=== PATIENT | male | born 1955 | race Caucasian/White ===

== ENCOUNTER 2017-12-18 13:06 | Observation (INO) | payer BC ==
[~2017-12-18] VITALS: Ht 180.3 cm; Wt 91.6 kg
[~2017-12-18 13:06] MED LIST: ANASPAZ0.125 MG SL; ANUSOL-HC25 MG RECTAL; ASPIR 8181 MG PO; B12INJ PO; CARAFATE 1 GM TA1 G1 PO; CLARITIN10 MG PO; CLONIDINE0.1 PO; COLACE100 MG PO; DILAUDID 2 MG TA2 MG PO; DOXYCYCLINE 10100 MG PO; EFFIENT10 MG PO; ENTOCORT EC 3 MG3 MG PO; FENTANYL 0.50 MCG/ML IVPUSH; FLAGYL500 MG PO; FLONASE 0.05%50 MCG NASAL; HYDROCODON-ACE1 EAC7 PO; HYDROCODONE-APA1 TA1 PO; KLOR-CON SPRIN10 MEQ PO; LIPITOR 20 MG T20 M1 PO; METOPROLOL TARTATE PO; MIRALAX17 GM PO; NEURONTIN300 MG PO; NORCO 5-325 TA1 EACH PO; OMEPRAZOLE40 MG PO; PANTOPRAZOLE SO40 M1 PO; PENTASA500 MG PO; PERCOCET PO; POTASSIUM20 PO; SIMVASTATIN40 MG PO; TOPROL XL25 MG; TOPROL XL25 MG PO; TRAMADOL 50 MG50 MG PO; VALIUM5 MG PO; VITAMIN D2000 UNIT PO; XANAX 0.25 MG0.25 MG PO; XANAX1 MG PO; ZANAFLEX4 MG PO; ZANTAC 150MG T150 MG PO; ZOFRAN ODT4 MG DISSOLVE; ZYRTEC10 MG PO
[2017-12-18 13:27] LABS: ABSOLUTE BASOPHILS 0.1 thou/uL (0.0-0.2); ABSOLUTE EOSINOPHILS 0.4 thou/uL (0.0-0.7); ABSOLUTE LYMPHOCYTES 2.3 thou/uL (0.8-5.3); ABSOLUTE MONOCYTES 0.6 thou/uL (0.0-1.2); ABSOLUTE NEUTROPHILS 5.3 thou/uL (1.6-8.1); BASOPHILS 0.9 %; EOSINOPHILS 4.2 %; HEMATOCRIT 45.9 % (42.0-52.0); HEMOGLOBIN 15.6 gm/dL (14.0-18.0); LYMPHOCYTES 26.5 %; MCH 28.4 pg (26.0-34.0); MCHC 34.1 g/dL (28.0-37.0); MCV 83.3 fL (80.0-100.0); MONOCYTES 6.5 %; MPV 7.9 fl. (7.2-11.1); NUCLEATED RBCS 0 /100WBC; PLATELET COUNT* 170 thou/uL (150-400); POLYS 61.9 %; RDW-CV 13.5 % (10.5-14.5); WBC 8.6 thou/uL (4.0-11.0)
[2017-12-18 13:31] LABS: URINE BILIRUBIN NEGATIVE (Negative); URINE BLOOD NEGATIVE (Negative); URINE CLARITY CLEAR; URINE COLOR YELLOW; URINE GLUCOSE-RANDOM NEGATIVE (Negative); URINE KETONES NEGATIVE (Negative); URINE LEUKOCYTES-REFLEX NEGATIVE (Negative); URINE NITRITE-REFLEX NEGATIVE (Negative); URINE PROTEIN NEGATIVE (Negative); URINE SPECIFIC GRAVITY 1.025 (1.005-1.030); URINE UROBILINOGEN 0.2 E.U./dl (0.2-1.0)
[2017-12-18 13:42] LABS: ALBUMIN 3.6 g/dL (3.4-5.0); CALCIUM 8.8 mg/dL (8.5-10.1); CREATININE 0.8 mg/dL (0.6-1.3); TOTAL PROTEIN 7.5 g/dL (6.4-8.2)
[2017-12-18 20:00] VITALS: BP 139/89
[2017-12-18 23:00] VITALS: BP 129/72
[2017-12-19 03:00] VITALS: BP 108/76
[2017-12-19 07:30] VITALS: BP 125/84
--- NOTE | 2017-12-19 10:37 | EKG ---
[place] [address] ELECTROCARDIOGRAM REPORT Name: DANNIELLE HALL Room: [address] M.R.#: [id number] Admission: 12/18/17 Attend Phys: Scott Quintero DO Discharge: Date of : 59 Report #: [id number] THIS REPORT FOR: //name// [facility] ED Test Date: 2017-12-18 Test Time: 17:58:52 Pat Name: DANNIELLE HALL Department: Room: [place] [address] Gender: M Maintenance Man: SANGEETA : 1955 Requested By: Tito Mccoy Order Number: [id number] Reading MD: Fritz Hilario Measurements Intervals [place] Rate: 66 P: 7 [place]: 171 QRS: -22 QRSD: 102 T: 14 QT: 402 QTc: 422 Interpretive Statements Sinus rhythm Borderline left axis deviation Compared to ECG 05/05/2017 09:05:18 No significant changes Electronically Signed On 12-19-2017 10:37:22 CDT by Fritz Hilario [email or web address] <ELECTRONICALLY SIGNED> By: Fritz Hilario MD, [facility] 12/19/17 1037 1758 175 Fritz Hilario MD, [facility] /EPI
[2017-12-19] MEDS ORDERED: HYDROCODON-ACE1 EAC7 PO (10:44)
[2017-12-19 10:46] VITALS: BP 125/84
--- NOTE | 2017-12-21 17:18 | OP ---
[address] [address] OPERATIVE REPORT Name: DANNIELLE HALL Room: [address] Ramonita Nathan#: [id number] Admission: 12/18/17 Attend Phys: Scott Qunitero DO Discharge: 12/19/17 Date of : 59 Report #: [id number] THIS REPORT FOR: //name// CC: Scott Jeter DICTATED BY: Robert John DO DATE OF SERVICE: 12/18/2017 PREOPERATIVE DIAGNOSIS: Acute appendicitis. POSTOPERATIVE DIAGNOSIS: Acute appendicitis. SURGEON: Scott Quintero DO OIL PROCESSING TECHNICIAN: Robert John DO, PGY-1. OPERATION PERFORMED: Laparoscopic appendectomy. ANESTHESIA: General. ESTIMATED BLOOD LOSS: 30 SPECIMEN REMOVED: Appendix. COMPLICATIONS: None. DISPOSITION: To PACU in a stable condition. INDICATIONS: The patient is a 62-year-old male who presented with a 3-day history of right lower quadrant abdominal pain. He was seen by his primary care physician, Dr. Vital, today and was sent for an outpatient CT scan of the abdomen, which revealed acute appendicitis. It was discussed with the patient that a laparoscopic appendectomy would be definitive treatment for his condition. Risks and complications were discussed to include bleeding, infection, injury to surrounding structures, possible open procedure, possible drain placement and possible risk of anesthesia. He agreed. He voiced his understanding of risks and complications and agreed to proceed with surgery. DESCRIPTION OF PROCEDURE: After consent was obtained, the patient was taken to the operating room and placed on the operating room table in the supine position. SCDs were applied to both lower extremities bilaterally. Two grams of Ancef were given preoperatively. General anesthesia was administered without [place] [id number] OPERATIVE REPORT Name: DANNIELLE HALL Room: [address] Ramonita Nathan#: [id number] Admission: 12/18/17 Attend Phys: Scott Quintero DO Discharge: 12/19/17 Date of : 59 Report #: [id number]. The patient was then prepped and draped in the standard sterile fashion. An 11 blade scalpel was used to make a vertical incision above the umbilicus. Electrocautery was used to dissect down to the fascia. The fascia was scored and grasped on both sides with Adriana and a hemostat was used to bluntly enter the peritoneum. Two sutures of 0 Vicryl were placed on either side of the fascia and a 10 mm Vinh trocar was advanced into the abdomen. Insufflation was initiated without any complication. Camera was inserted into the abdomen and the intra-abdominal cavity was inspected. The appendix could not be immediately visualized, so a second trocar was inserted suprapubically under direct visualization. Laparoscopic Shamir was then entered into the abdomen and used to move the small bowel cephalad and lateral. At that time, the cecum could be visualized and the appendix could be seen adhered to the anterior abdominal wall. A second trocar was then placed in the left lower quadrant under direct visualization. Harmonic scalpel was used to dissect adhesions around the inflamed appendix. After the appendix was dissected off the anterior abdominal wall, the base of the appendix could be visualized going into the cecum. The end of the cecum was then clarified by visualizing the tinea. [place] dissector was used to dissect through the mesoappendix at the base of the appendix and a 45 purple load Endo-CESAR stapler was placed over the base of the appendix and fired. The Harmonic scalpel was then used to further dissect the mesoappendix all the way towards the tip. After the appendix was removed, it was placed into an EndoCatch bag and a suction irrigation was used to irrigate the right lower quadrant and to closely inspect for hemostasis. After hemostasis was ensured, the staple line was inspected carefully and no bleeding was seen. Insufflation was let down slightly again to ensure hemostasis at the staple line. Isaiah-Benja was used to close the fascia of the right lower quadrant, 10 mm trocar site, and a 4-0 Monocryl was used to close all incision sites after insufflation was released from the abdomen. Sterile dressings were placed over top of all incisions. All needle counts were correct, all instrument counts were correct and all sponge counts were correct at the end of the case. The patient was awoken from general anesthesia without any complication and sent to PACU in a stable condition. <ELECTRONICALLY SIGNED> By: Scott Quintero DO 12/21/17 1718 07 2130Adajeremiah Quintero DO /nt
== END 2017-12-19 11:49 | disposition home or self-care (01) ==
LOC: M.CT 13:06 → M.TBA 17:10 → M.2W 17:10 → M.TBA 17:10 → M.2W 20:50
PROVIDERS: Internal Medicine; ADMIT Surgery
DX: K35.80 Unspecified acute appendicitis (principal); I25.10 Atherosclerotic heart disease of native coronary artery without angina pectoris; K21.9 Gastro-esophageal reflux disease without esophagitis; F41.9 Anxiety disorder, unspecified; I10 Essential (primary) hypertension; Z95.5 Presence of coronary angioplasty implant and graft; Z87.19 Personal history of other diseases of the digestive system; Z85.46 Personal history of malignant neoplasm of prostate; Z98.890 Other specified postprocedural states

== ENCOUNTER → 2019-04-16 | Outpatient (CLI) | payer OTHER | LOC: M.RAD 15:16 | DX: M19.011 Primary osteoarthritis, right shoulder (principal); J84.10 Pulmonary fibrosis, unspecified; Z88.8 Allergy status to other drugs, medicaments and biological substances ==

== ENCOUNTER 2020-01-22 09:16 | Observation (INO) | payer OTHER ==
[~2020-01-22] VITALS: Ht 180.3 cm; Wt 91.6 kg
--- NOTE | ~2020-01-22 | H ---
[address] [address] HISTORY AND PHYSICAL Name: DANNIELLE HALL Room: [address] Ramonita Nathan#: [id number] Admission: 01/22/20 Attend Phys: Olvin Robles MD, Discharge: 01/23/20 Date of : 59 Report #: [id number] THIS REPORT FOR: //name// cc: Tito Vital MD, David L. MD ~ THIS REPORT FOR: //name// Please refer to the History and Physical performed in the physician's office. By: [facility]6Medical Records Staff [facility] /[place]AR[place]
[~2020-01-22 09:16] MED LIST changes: +IMDUR 30 MG TAB30 M1 PO; +KLOR-CON 10 ER10 MEQ PO; -KLOR-CON SPRIN10 MEQ PO; +ULTRAM50 MG PO
[2020-01-22 10:08] VITALS: BP 126/82
[2020-01-22 10:12] LABS: HEMATOCRIT 45.1 % (42.0-52.0); HEMOGLOBIN 15.7 gm/dL (14.0-18.0); MCH 29.4 pg (26.0-34.0); MCHC 34.8 g/dL (28.0-37.0); MCV 84.4 fL (80.0-100.0); MPV 8.2 fl. (7.2-11.1); RBC 5.34 mil/uL (4.50-6.00); RDW-CV 13.1 % (10.5-14.5); WBC 6.2 thou/uL (4.0-11.0)
[2020-01-22 10:21] LABS: ANION GAP 6 mmol/L (7-16); BUN 14 mg/dL (7-18); CALCIUM 8.7 mg/dL (8.5-10.1); CHLORIDE 102 mmol/L (98-107); CO2 31 mmol/L (21-32); GLUCOSE 91 mg/dL (70-99); POTASSIUM 4.5 mmol/L (3.5-5.1); PROTIME 10.7 Seconds (9.20-11.50); SODIUM 139 mmol/L (136-145)
[2020-01-22 10:26] LABS: ALBUMIN 3.7 g/dL (3.4-5.0); ALKALINE PHOSPHATASE 76 U/L (46-116); CHOLESTEROL 149 mg/dL (<200); HDL CHOLESTEROL 63 mg/dL (>40); LDL CHOLESTEROL 59 mg/dL (<100); SERUM ASSESSMENT Clear; SGOT 25 U/L (15-37); SGPT 25 U/L (30-65); TC:HDL 2.4 Ratio (Not establshd); TOTAL BILIRUBIN 1.1 mg/dL (<0.1-1.0); TOTAL PROTEIN 7.3 g/dL (6.4-8.2); TRIGLYCERIDE 139 mg/dL (<150); VLDL 28 mg/dL (<40)
[2020-01-22 13:40] VITALS: BP 138/93
[2020-01-22 13:56] VITALS: BP 138/93
[2020-01-22 14:12] VITALS: BP 132/85
--- NOTE | 2020-01-22 15:09 | EKG ---
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 : 1955 Requested By: Olvin Robles Order Number: [id number] Mindi MD: Olvin Robles Measurements Intervals [place] Rate: 61 P: 24 [place]: 188 QRS: -26 QRSD: 97 T: 20 QT: 404 QTc: 407 Interpretive Statements Sinus rhythm Borderline left axis deviation Baseline wander in lead(s) V1 Compared to ECG 12/18/2017 17:58:52 No significant changes Electronically Signed On 01-22-2020 15:09:07 CDT by Olvin Robles [email or web address] <ELECTRONICALLY SIGNED> By: Olvin Robles MD, [facility] 01/22/20 1509 0955 0955 Olvin Robles MD, [facility] /EPI
--- NOTE | 2020-01-22 15:55 | CARD ---
[address] [address] CARDIAC CATH REPORT Name: DANNIELLE HALL Room: [address] M.R.#: [id number] Admission: 01/22/20 Attend Phys: Olvin Robles MD, Discharge: Date of : 59 Report #: [id number] THIS REPORT FOR: //name// cc: Tito Vital MD, David L. MD ~ APPROVED REPORT Study performed: 01/22/2020 11:15:38 Patient Details Patient Status: Out-Patient Room #: The patient is a 64 year-old male Event Personnel Olvin Robles Dulser, Jered Tapia RN Tactical Debriefer Officer, Jair Lund Scrub, Princess Naranjo RTR Monitor, Vidhi Aponte RN Tactical Debriefer Officer, Yolanda Quintero RTR Monitor Procedures Performed Art Access - R femoral artery, Left Heart Cath w/or w/o Coronaries LHC, TAI Place w/wo Plasty Single LAD , Hemostasis w/ Angioseal Indication Unstable angina Risk Factors Hypercholesterolemia, Hypertension Previous Procedures/Diagnoses Previous PCI Admission/Lab Medications/Medications given during procedure Angiomax IV bolus 13.5 ml, Angiomax Drip IV 32.1 ml per hr, Angiomax IV bolus 4 ml, Aspirin PO 162 mg, Effient PO 60 mg Procedure Narrative The patient was brought electively to the Cardiac Catheterization Laboratory and was prepped and draped in a sterile manner. The right femoral was infiltrated with 2% Lidocaine subcutaneous anesthesia. A 6F Hartwick sheath was inserted into the right femoral artery. Coronary angiography was performed using coronary diagnostic catheters. The right coronary system was accessed and visualized with a 6F JR4 catheter. The [place] [address] CARDIAC CATH REPORT Name: DANNIELLE HALL Room: [address] Ramonita MAndres#: [id number] Admission: 01/22/20 Attend Phys: Olvin Robles MD, Discharge: Date of : 59 Report #: [id number] visualized with a 6F JL4 catheter. The left ventricle was accessed and visualized with a 6F Pigtail catheter. Left ventricular/Aortic Valve gradient assessed via catheter pullback. Left ventriculogram was performed in GIVENS projection. Pre-demployment femoral angiogram was performed . Closure device was deployed with a 6 Fr Angioseal STS. The patient tolerated the procedure well and there were no complications associated with the procedure. There was no hematoma. Intraoperative Conscious Sedation Sedation start time: 12:21 Case end Time: 13:18 Fentanyl 25 mcg Versed 2 mg Fluoro Time: 14.3 minutes Dose: DAP [id number] cGycm2 2302 mGy Contrast Type and Amount: Visipaque 215 ml Coronary Angiography The patient's coronary anatomy is right dominant. Diagnostic Cath Left Main 0% narrowing LAD Tandem 75% mid LAD stenoses just proximal and distal to the previously deployed stent Circumflex 0% narrowing Right Coronary Large dominant vessel with 30% proximal and mid vessel narrowing Left Ventriculography The left ventricle is normal in size with normal contractility. The left ventricular ejection fraction is estimated to be 55-60%. Left ventricular wall motion abnormalities are not present. There is no mitral insufficiency. Hemodynamics The aortic pressure is 128/61 mmHg with a mean of 75 mmHg. The left ventricular pressure is 129/9 mmHg with a mean of mmHg. The left ventricular end diastolic pressure is 15 mmHg. There was no gradient across the aortic valve upon pullback. PCI Technique Lesion Anticoagulation was achieved with Angiomax. Patient was preloaded with Angiomax IV 13.5 ml. Percutaneous coronary intervention was performed on the mid left anterior descending artery segment. The lesion stenosis prior to intervention was 75% with LYNN 3 [place] 6[place] [address] CARDIAC CATH REPORT Name: DANNIELLE HALL Room: [address]#: [id number] Admission: 01/22/20 Attend Phys: Olvin Robles MD, Discharge: Date of : 59 Report #: [id number] XB LAD 3.5 Guide Catheter was used to engage the lm ostium. A ProwaterFlex 180CM Interventional Guidewire was used to cross the lesion. BALLOON DILATION A Balloon catheter NC Trek RX 2.25x12 was inserted and inflated up to 14.00atm for 9seconds. Additional Inflation: 16.00atm for 10seconds. Additional Inflation: 12.00atm for 6seconds. STENT DEPLOYMENT A drug-eluting stent [place] RX Stent 2.0X26mm was inserted and inflated up to 12.00atm for 9seconds. Additional Inflation: 14.00atm for 6seconds. Additional Inflation: 15.00atm for 6seconds. A drug-eluting stent Jl RX Stent 2.25 x 8mm was inserted and inflated up to 12 tres for 9 seconds. Additional Inflations: 15 tres for 5 seconds; 15 tres for 5 seconds; 15 tres for 6 seconds. Final angiography reveals 0 % stenosis with LYNN 3 flow. COMMENTS A BMW 190cm Interventional Guidewire was used across the Diagonal artery. Conclusion 1. Significant coronary artery disease characterized by the following: A tandem 75% mid LAD stenoses just proximal and distal to a previously deployed stent B 30% narrowing in the proximal and midportion of the large dominant right coronary artery 2. Normal left ventricular systolic function, estimated ejection fraction 55 - 60% 3. Mild elevation of left ventricular end-diastolic pressure at rest 4. Successful PCI with deployment of sequential drug-eluting stents at the sites of tandem 75% mid LAD stenoses with 0% residual narrowing and LYNN-3 flow to the distal vessel Recommendations Cardiac Risk Reduction Program [place] [address] CARDIAC CATH REPORT Name: DANNIELLE HALL Room: [address] Ramonita Nathan#: [id number] Admission: 01/22/20 Attend Phys: Olvin Robles MD, Discharge: Date of : 59 Report #: [id number] Medications Administered Aspirin (any) Prasugrel Diagnostic Cath Approved by: Olvin Robles MD Date/Time: 01/22/2020 15:52:27 <ELECTRONICALLY SIGNED> By: Olvin Robles MD, [facility] 01/22/20 1555 1555 1555Olvin Robles MD, FACC /INF
[2020-01-22 17:44] VITALS: BP 132/85
[2020-01-22 23:50] VITALS: BP 146/94
[2020-01-23 03:50] VITALS: BP 133/94
[2020-01-23 04:13] LABS: HEMATOCRIT 45.8 % (42.0-52.0); HEMOGLOBIN 15.7 gm/dL (14.0-18.0); MCH 28.8 pg (26.0-34.0); MCHC 34.3 g/dL (28.0-37.0); RBC 5.46 mil/uL (4.50-6.00); RDW-CV 12.9 % (10.5-14.5); WBC 6.6 thou/uL (4.0-11.0)
[2020-01-23 04:28] LABS: ALBUMIN 3.4 g/dL (3.4-5.0); CALCIUM 8.5 mg/dL (8.5-10.1); TOTAL BILIRUBIN 1.3 mg/dL (<0.1-1.0); TOTAL PROTEIN 6.9 g/dL (6.4-8.2); TROPONIN-I LEVEL 0.45 ng/mL (<0.06)
[2020-01-23 08:30] VITALS: BP 130/86
[2020-01-23] MEDS ORDERED: EFFIENT10 MG PO (12:04)
[2020-01-23] MEDS ORDERED: TYLENOL325 MG PO (12:06)
[2020-01-23] MEDS ORDERED: NITROGLYCERIN0.4 MG SUBLING (12:07)
[2020-01-23 12:11] VITALS: BP 132/85
--- NOTE | 2020-01-23 13:19 | EKG ---
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
--- NOTE | 2020-01-23 13:23 | EKG ---
[place] [address] ELECTROCARDIOGRAM REPORT Name: RAFAELDANNIELLEEARLE CAMARGO Room: [address] M.R.#: [id number] Admission: 01/22/20 Attend Phys: Shane Castillo Discharge: 01/23/20 Date of : 59 Date of Service: 01/23/20 0821 Report #: [id number] THIS REPORT FOR: //name// [facility] Test Date: 2020-01-23 Test Time: 08:21:55 Pat Name: DANNIELLE HALL Department: Room: [facility] Gender: M Trainer: : 1955 Requested By: Olvin Robles Order Number: [id number] Reading MD: Betito Silverio Measurements Intervals [place] Rate: 63 P: 45 [place]: 190 QRS: -24 QRSD: 97 T: 14 QT: 396 QTc: 406 Interpretive Statements Sinus rhythm Borderline left axis deviation Compared to ECG 01/22/2020 14:01:36 No significant changes Electronically Signed On 01-23-2020 13:23:33 CDT by Betito Silverio [email or web address] <ELECTRONICALLY SIGNED> By: Betito Silverio MD, FACC 01/23/20 1323 0 0 Betito Silverio MD, [facility] /EPI
--- NOTE | 2020-01-24 14:46 | D ---
[address] [address] DISCHARGE SUMMARY Name: DANNIELLE HALL Room: [address] Ramonita M.RMalini#: [id number] Admission: 01/22/20 Attend Phys: Olvin Robles MD, Discharge: 01/23/20 Date of : 59 Report #: [id number] THIS REPORT FOR: //name// cc: Tito Vital MD, David L. MD ~ THIS REPORT FOR: //name// CC: Tito Robles FINAL DISCHARGE DIAGNOSES: 1. Unstable angina. 2. Coronary artery disease. 3. Status post PTCA with stenting of the mid left anterior descending. 4. Hypertension. 5. Hyperlipidemia. 6. Crohn's disease. PROCEDURES: On 01/22/2020 -- Left heart catheterization, left ventriculography, selective coronary arteriography and percutaneous coronary intervention with deployment of sequential drug-eluting stents at the sites of tandem 75% mid LAD stenosis. HOSPITAL COURSE: The patient is a very pleasant 64-year-old male with a history of coronary artery disease, slightly less than 5 years status post PCI to the mid LAD. Recently, he has noted recrudescence of symptoms typical of his prior angina following a course of increasing frequency and severity. He has underlying hypertension and hyperlipidemia. In that context, I performed cardiac catheterization on 01/22/2020. That revealed tandem 75% mid LAD stenosis proximal and distal to the previously deployed stent. There were no significant left main and right coronary or circumflex narrowings. Given this data, I deployed two drug-eluting stents in the mid LAD with 0% residual narrowing and LYNN 3 flow of the distal vessel. Troponin constance minimally to 0.45, no clinical significance. Additional lab on 01/22 revealed sodium 140, potassium 4.0, BUN 13, creatinine 1.0, glucose 96. Hemoglobin 15.7, white blood cell count 6600 with 158,000 platelets. There was good hemostasis at the right femoral site, the patient ambulated in the hallways without difficulty. DISCHARGE MEDICATIONS: He was discharged to home on the following medications: Aspirin 81 mg b.i.d., atorvastatin 20 mg at bedtime, cholecalciferol [address] [place] [address] DISCHARGE SUMMARY Name: DANNIELLE HALL RAMAN Room: [address] Ramonita Nathan#: [id number] Admission: 01/22/20 Attend Phys: Olvin Robles MD, Discharge: 01/23/20 Date of : 59 Report #: [id number], Imdur 30 mg daily, Claritin 10 mg daily, Pentasa 1000 mg b.i.d., omeprazole 1 capsule 40 mg b.i.d., potassium chloride 10 mEq daily, prasugrel or Effient 10 mg daily with a 60 mg loading dose, vitamin B12 1000 mcg daily, acetaminophen 650 mg p.r.n., alprazolam 1 mg as needed. The patient is discharged to home in stable condition on the aforementioned medications with followup on 02/10/2020 in our office for an echocardiogram at that time. Therefore, the patient is discharged to home in stable condition on the aforementioned medications with followup as described above. <ELECTRONICALLY SIGNED> By: Olvin Robles MD, FACC 01/24/20 1446 0956 1020Joleif Robles MD, FAC /nt
== END 2020-01-23 13:00 | disposition home or self-care (01) ==
LOC: CANPRECLI → M.CL 09:16 → M.TBA-CV 13:28 → M.2W 13:28 → M.TBA-CV 13:28 → M.2W 14:33
PROVIDERS: ADMIT Internal Medicine; ATTEND Internal Medicine
DX: Z03.818 Encounter for observation for suspected exposure to other biological agents ruled out (principal); I25.110 Atherosclerotic heart disease of native coronary artery with unstable angina pectoris; I10 Essential (primary) hypertension; E78.5 Hyperlipidemia, unspecified; K50.90 Crohn's disease, unspecified, without complications

== ENCOUNTER 2020-02-13 17:49 | Emergency (ER) | payer OTHER ==
[~2020-02-13] VITALS: Ht 180.3 cm; Wt 91.2 kg
[~2020-02-13 17:49] MED LIST changes: +NITROGLYCERIN0.4 MG SUBLING; +TYLENOL325 MG PO
[2020-02-13 19:30] LABS: HEMATOCRIT 45.6 % (42.0-52.0); HEMOGLOBIN 15.9 gm/dL (14.0-18.0); MCH 29.1 pg (26.0-34.0); MCHC 34.8 g/dL (28.0-37.0); MCV 83.6 fL (80.0-100.0); MPV 8.3 fl. (7.2-11.1); NUCLEATED RBCS 0 /100WBC; PLATELET COUNT* 131 thou/uL (150-400); RBC 5.46 mil/uL (4.50-6.00); RDW-CV 13.2 % (10.5-14.5); WBC 12.8 thou/uL (4.0-11.0)
[2020-02-13 19:40] LABS: CALCIUM 8.6 mg/dL (8.5-10.1); CREATININE 1.1 mg/dL (0.6-1.3); POTASSIUM 3.7 mmol/L (3.5-5.1)
[2020-02-13 19:42] LABS: APTT 24.3 Seconds (25.0-31.3); PROTIME 10.7 Seconds (9.20-11.50)
[2020-02-13 19:52] LABS: ABSOLUTE LYMPHOCYTES 0.9 thou/uL (0.8-5.3); ABSOLUTE MONOCYTES 0.3 thou/uL (0.0-1.2); ABSOLUTE NEUTROPHILS 11.6 thou/uL (1.6-8.1); ATYPICAL LYMPHS 3 %
[2020-02-13 19:53] LABS: PLATELET ESTIMATE ADEQUATE
[2020-02-13 19:57] LABS: ALBUMIN 3.9 g/dL (3.4-5.0); TOTAL BILIRUBIN 1.6 mg/dL (<0.1-1.0); TOTAL PROTEIN 7.6 g/dL (6.4-8.2)
[2020-02-13 22:19] LABS: URINE BILIRUBIN NEGATIVE (Negative); URINE BLOOD TRACE (Negative); URINE CLARITY CLEAR; URINE COLOR YELLOW; URINE GLUCOSE-RANDOM NEGATIVE (Negative); URINE KETONES NEGATIVE (Negative); URINE LEUKOCYTES-REFLEX NEGATIVE (Negative); URINE NITRITE-REFLEX NEGATIVE (Negative); URINE PROTEIN NEGATIVE (Negative); URINE SPECIFIC GRAVITY 1.015 (1.005-1.030); URINE UROBILINOGEN 0.2 E.U./dl (0.2-1.0)
[2020-02-13] MEDS ORDERED: AUGMENTIN 875-1 EACH PO (22:57)
[2020-02-13] MEDS ORDERED: HYDROCODON-ACE1 EAC8 PO (22:59)
[2020-02-13 23:03] VITALS: BP 132/79
--- NOTE | 2020-02-14 10:12 | EKG ---
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
== END 2020-02-13 23:03 | disposition home or self-care (01) ==
LOC: M.ERS 17:49
PROVIDERS: Emergency Medicine; Nurse Practitioner Family
DX: M79.662 Pain in left lower leg (principal); R10.2 Pelvic and perineal pain; R59.1 Generalized enlarged lymph nodes; R42 Dizziness and giddiness; K50.90 Crohn's disease, unspecified, without complications; K21.9 Gastro-esophageal reflux disease without esophagitis; I10 Essential (primary) hypertension; Z88.5 Allergy status to narcotic agent; Z90.49 Acquired absence of other specified parts of digestive tract

== ENCOUNTER → 2020-02-17 | Outpatient (CLI) | payer OTHER ==
[~2020-02-17] MED LIST changes: +AUGMENTIN 875-1 EACH PO; +HYDROCODON-ACE1 EAC8 PO
== END ==
LOC: M.MRI 08:09
PROVIDERS: ATTEND Internal Medicine
DX: G44.221 Chronic tension-type headache, intractable (principal); I10 Essential (primary) hypertension; R42 Dizziness and giddiness; K50.90 Crohn's disease, unspecified, without complications; E78.2 Mixed hyperlipidemia

== ENCOUNTER → 2021-01-06 | Outpatient (CLI) | payer OTHER ==
--- NOTE | 2021-01-07 16:36 | CARDNUC ---
[place] [address] CARDIAC NUCLEAR IMAGING REPORT Name: DANNIELLE HALL Room: [facility]#: [id number] Admission: 01/06/21 Attend Phys: Shane Castillo Discharge: Date of : 59 Date of Service: 01/07/21 1636 Report #: [id number] THIS REPORT FOR: cc: Aguilar Pena MD, Meng MD Liston, Michael J. MD [facility] ~ APPROVED REPORT Study performed: 01/06/2021 14:18:24 Exam: Nuclear Stress Test Indication: Chest pain, Dyspnea Patient Location: Out-Patient Stress Tech: Sybil Mishra Stress Nurse: Rosalina Garcia RN Ht: 5 ft 9 in Wt: 185 lbs BSA: 2.00 m2 BMI: 27.31 Medical History Medical History: CAD non obstructive, HTN, Hyperlipidemia, crohns Medications: atorvastatin, prasugrel, asa-81, klor-con Allergies: morphinme Cardiac Risk Factors: Age, FHX of CAD, HTN, Hyperlipidemia Exercise History: Physically active Stress Test Details Stress Test: Exercise stress testing was performed using a Juan protocol. HR Resting HR: 68 bpm Max Heart Rate (APMHR): 157 bpm Max HR Achieved: 148 bpm Target HR (85% APMHR): 133 bpm % of APMHR: 94 Recovery HR: 97 bpm BP Resting BP: 116/84 mmHg Max BP: 188/73 mmHg ECG Resting ECG: Sinus Rhythm Stress ECG: Sinus Tachycardia ST Change: [place] [address] CARDIAC NUCLEAR IMAGING REPORT Name: DANNIELLE HALL Room: [facility]#: [id number] Admission: 01/06/21 Attend Phys: Shane Castillo Discharge: Date of : 59 Date of Service: 01/07/21 1636 Report #: [id number] Arrhythmia: None Recovery ECG: Sinus Rhythm Recovery ST Change: None Recovery Arrhythmia: None Clinical Reason for Termination: Fatigue Exercise duration: 11 min 59 sec Exercise capacity: 13.48 METs Overall Exercise Capacity for Age: Superior Functional Aerobic Impairment 98% The patient exhibited excellent exercise tolerance. The patient had no cardiac symptoms with standard Juan protocol exercise. Stress ECG Conclusion The baseline twelve-lead EKG shows sinus rhythm without significant ST segment or T wave abnormality. EKGs obtained during and post exercise show sinus rhythm and sinus tachycardia with no significant ST segment or T wave changes when compared to baseline. There were no stress-induced arrhythmias. NM EXAM: Myocardial Perfusion REST/STRESS Imaging Protocol: Rest Tc-99m/Stress Tc-99m 1 day Resting Data Rest SPECT myocardial perfusion imaging was performed in supine position 30 minutes following the intravenous injection of 10.0 mCi of Tc-99m Sestamibi. Time of rest injection: 12:45 The images were gated to evaluate regional wall motion and calculate left ventricular ejection fraction. Administration Route: IV Administration Site: Right Wrist Exercise Stress At peak stress, the patient was injected intravenously with 34.0mCi of Tc-99m Sestamibi. Time of stress injection: 14:30 Administration Route: IV Administration Site: Right Wrist Heart Rate at time of stress injection: 148 bpm. Patient continued to exercise for 1 minute(s). Gated Stress SPECT was performed 30 minutes after stress injection. The images were gated to evaluate regional wall motion and calculate [place] [address] CARDIAC NUCLEAR IMAGING REPORT Name: DANNIELLE HALL Room: [facility]#: [id number] Admission: 01/06/21 Attend Phys: Shane Castillo Discharge: Date of : 59 Date of Service: 01/07/21 1636 Report #: [id number] Prone imaging was performed. Study Quality Study: Fair Artifact: Moderate Diaphragmatic artifact Study Data At rest, the left ventricular ejection fraction was 53%.. Post stress, the left ventricular ejection was 62%.. TID = 0.75. Perfusion There is moderate diaphragmatic attenuation artifact noted. Photopenia in the inferior wall appears more pronounced on the stress than resting images. Wall motion, however, is normal in this region. No other significant fixed or reversible defects are identified. Wall Motion Normal left ventricular wall motion. Nuclear Conclusion ECG Findings: negative for ischemia Clinical Findings: negative for ischemia Nuclear Findings: equivocal Exercise Capacity: normal Left Ventricular Function: normal The patient exhibited excellent exercise tolerance on the standard Juan protocol. There was no clinical or EKG evidence of stress-induced ischemia. Perfusion imaging studies are technically limited. There is significant diaphragmatic attenuation artifact. Cannot rule out focal area of ischemia or infarct in the inferior wall, however, wall motion in this region appears normal. This does not appear to be a high risk study. Clinical correlation recommended. <Conclusion> The baseline twelve-lead EKG shows sinus rhythm without significant ST segment or T wave abnormality. EKGs obtained during and post exercise show sinus rhythm and sinus tachycardia with no significant ST segment or T wave changes when compared to baseline. There were no stress-induced arrhythmias. <ELECTRONICALLY SIGNED> By: Betito Silverio MD, FACC 01/07/21 1636 1636 1636 Betito Silverio MD, FACC /INF
== END ==
LOC: M.NUC 01-01 09:51
PROVIDERS: ATTEND Internal Medicine
DX: I25.10 Atherosclerotic heart disease of native coronary artery without angina pectoris (principal)

== ENCOUNTER 2021-01-29 12:31 | Emergency (ER) | payer OTHER ==
[~2021-01-29] VITALS: Ht 180.3 cm; Wt 83.9 kg
[2021-01-29 14:27] LABS: HEMATOCRIT 42.7 % (42.0-52.0); HEMOGLOBIN 14.6 gm/dL (14.0-18.0); MCH 28.9 pg (26.0-34.0); MCHC 34.2 g/dL (28.0-37.0); MCV 84.6 fL (80.0-100.0); MPV 8.1 fl. (7.2-11.1); RBC 5.04 mil/uL (4.50-6.00); RDW-CV 13.5 % (10.5-14.5); WBC 8.4 thou/uL (4.0-11.0)
[2021-01-29 14:52] LABS: CALCIUM 8.4 mg/dL (8.5-10.1); CREATININE 0.9 mg/dL (0.6-1.3); POTASSIUM 4.1 mmol/L (3.5-5.1)
[2021-01-29 14:56] LABS: ALBUMIN 3.8 g/dL (3.4-5.0); TOTAL PROTEIN 7.2 g/dL (6.4-8.2)
[2021-01-29 15:21] VITALS: BP 132/64
--- NOTE | 2021-02-01 13:34 | EKG ---
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
== END 2021-01-29 15:21 | disposition home or self-care (01) ==
LOC: M.ERS 12:31
PROVIDERS: Emergency Medicine Emergency Medical Services
DX: R51.9 Headache, unspecified (principal); I10 Essential (primary) hypertension; K21.9 Gastro-esophageal reflux disease without esophagitis; K50.90 Crohn's disease, unspecified, without complications; Z90.49 Acquired absence of other specified parts of digestive tract; Z88.5 Allergy status to narcotic agent; Z79.899 Other long term (current) drug therapy

== ENCOUNTER → 2021-01-29 | Outpatient (CLI) | payer OTHER | LOC: M.CT 11:48 | PROVIDERS: ATTEND Internal Medicine | DX: R51.9 Headache, unspecified (principal) ==